=== PATIENT | male | born 1990 | race Caucasian/White ===

== ENCOUNTER 2016-11-09 06:37 | Inpatient (IN) | payer BC ==
[~2016-11-09] VITALS: Ht 177.8 cm; Wt 100.5 kg
[2016-11-09 07:31] LABS: BASOPHIL % 0.4 % (0-2); PLATELET COUNT 362 x10^3mcL (130-400); RED CELL DISTRIBUTION WIDTH 12.9 % (11.5-14.5)
[2016-11-09 07:59] LABS: CALCIUM 8.8 mg/dL (8.5-10.1); CARBON DIOXIDE 18.3 mmol/L (21-32); CHLORIDE SERUM 103 mmol/L (98-107); CREATININE SERUM 1.3 mg/dL (0.7-1.3); GFR1 > 60 mL/min; GLUCOSE SERUM 191 mg/dL (74-106); POTASSIUM SERUM 3.6 mmol/L (3.5-5.1); SODIUM SERUM 138 mmol/L (136-145)
[2016-11-09 08:11] LABS: ALKALINE PHOSPHATASE 104 U/L (46-116); ALT/SGPT 58 U/L (16-63); AST/SGOT 34 U/L (15-37); BILIRUBIN TOTAL 0.3 mg/dL (0.20-1.00); MAGNESIUM 2.3 mg/dL (1.8-2.4); T4(THYROXINE) 7.3 ug/dL (4.7-13.3); TOTAL PROTEIN, SERUM 7.6 g/dL (6.4-8.2)
[2016-11-09 08:58] LABS: AMPHETAMINE QUAL UR NONE DETECTED (NEG <=1000)
[2016-11-09 10:58] LABS: CHOLESTEROL/HDL RATIO 3.1
[2016-11-09 11:05] LABS: UA SPECIFIC GRAVITY >=1.030 (1.005-1.035); microscopic required? YES; urine erythrocyte 1+ (NEGATIVE)
[2016-11-09 11:15] VITALS: BP 122/70
[2016-11-09 11:25] LABS: FREE T4 0.71 ng/dL (0.76-1.46); FREE THYROXINE INDEX 2.4 ug/dL (1.4-4.5); T4(THYROXINE) 7.6 ug/dL (4.7-13.3)
[2016-11-09 12:35] LABS: T3 TOTAL 1.46 ng/mL
[2016-11-09 22:00] VITALS: BP 131/68
[2016-11-10 06:13] LABS: CALCIUM 8.6 mg/dL (8.5-10.1); CARBON DIOXIDE 27.5 mmol/L (21-32); CHLORIDE SERUM 106 mmol/L (98-107); CREATININE SERUM 1.1 mg/dL (0.7-1.3); GFR1 > 60 mL/min; GLUCOSE SERUM 106 mg/dL (74-106); MAGNESIUM 2.3 mg/dL (1.8-2.4); PHOSPHOROUS 3.6 mg/dL (2.5-4.9); POTASSIUM SERUM 3.7 mmol/L (3.5-5.1); SODIUM SERUM 140 mmol/L (136-145)
[2016-11-10 06:14] VITALS: BP 129/78
[2016-11-10 06:25] LABS: BASOPHIL % 0.2 % (0-2); PLATELET COUNT 293 x10^3mcL (130-400)
[2016-11-10 11:15] VITALS: BP 129/85
[2016-11-10] MEDS ORDERED: KEPPRA500 MG PO (14:18)
[2016-11-10 14:48] VITALS: BP 129/85
== END 2016-11-10 15:17 | disposition home or self-care (01) | DRG 100 ==
LOC: ED 06:37 → DU 10:09
PROVIDERS: Emergency Medicine; ADMIT Family Medicine
DX: G40.909 Epilepsy, unspecified, not intractable, without status epilepticus (principal); N17.0 Acute kidney failure with tubular necrosis; S42.202A Unspecified fracture of upper end of left humerus, initial encounter for closed fracture; S42.302A Unspecified fracture of shaft of humerus, left arm, initial encounter for closed fracture; S00.511A Abrasion of lip, initial encounter; E86.0 Dehydration; W18.39XA Other fall on same level, initial encounter; Y93.89 Activity, other specified; Y92.018 Other place in single-family (private) house as the place of occurrence of the external cause
CPT/HCPCS: 80307; 83880; 84439; 90715; G0480; J2405; J3010; J7030; Q0092